=== PATIENT | male | born 1975 | race Caucasian/White ===

== ENCOUNTER 2017-03-25 19:31 | Emergency (ER) | payer OTHER ==
[~2017-03-25] VITALS: Ht 165.1 cm; Wt 79.4 kg
--- NOTE | 2017-03-25 23:13 | NUR ---
david hogan at bedside for eval.
[2017-03-25] MEDS ORDERED: IBUPROFEN 400 MG TABLET ONE (23:24)
[2017-03-25] MEDS ORDERED: IBUPROFEN 400 MG TABLET PO ONE (23:30)
--- NOTE | 2017-03-25 23:42 | NUR ---
pt is negative for dvt. medicated as ordered. Patient discharged to home in stable condition. Written and verbal after care instructions given. Patient verbalizes understanding of instruction.
[2017-03-25 23:44] VITALS: BP 124/62
== END 2017-03-25 23:44 | disposition home or self-care (01) ==
LOC: ER 19:34
DX: S86.912A Strain of unspecified muscle(s) and tendon(s) at lower leg level, left leg, initial encounter (principal); Z88.5 Allergy status to narcotic agent; X58.XXXA Exposure to other specified factors, initial encounter; Y92.89 Other specified places as the place of occurrence of the external cause; Y93.89 Activity, other specified; Y99.8 Other external cause status
CPT/HCPCS: 93970; 99284; A4606; Z7610